=== PATIENT | male | born 1980 | race Caucasian/White ===

== ENCOUNTER 2016-04-21 08:43 | Day surgery (SDC) | payer OTHER ==
[~2016-04-21] VITALS: Ht 182.9 cm; Wt 86.9 kg
[2016-04-21] VITALS (8 sets, daily range): BP systolic 122–136; BP diastolic 64–81; PULSE 64–74; RESP 11–18; O2SAT 94–99
--- NOTE | 2016-04-21 06:43 | PCM.HPANE ---
Patient Data Surgeon Admitting Provider: Attending Provider:Audie Person DPM Primary Care Physician:Matthew Kay MD Other Provider:Heather Garridoingham Anesthesia Reason for Visit Right Peroneal Tendon Tear, Right Ankle Instabilit Ht/WT & BMI Height (Feet): 6 Height (Inches): 0 Weight (Kilograms): 88.08 Body Mass Index 26.00 Allergies Coded Allergies: No Known Allergies (Verified Allergy, Unknown, 04/19/16) Past Anesthesia History Anesthesia History: Denies:: Anesthesia Reactions Diabetes History Hx Diabetes?: No MRSA MRSA: No Medications Reported Medications Amphet Asp/Amphet/D-Amphet (Adderall)30 Mg Ndxpri03 Mg PO DAILY Ref 0 04/19/16 History History of ENT Problems?: No Hx of Heart Problems?: No Hx of Respiratory Problem?: No Hx Neurologic Problems?: Yes Other Neurological Pertinent: ADD/ADHD, ON MEDICATION Hx of GI Problems?: No Hx of Problems?: No Male Hx: Denies:: Prostate Problems Scrotal Mass Testicular Surgery Skin History: Denies:: History Skin Disorders? Pressure Ulcers Hx Musculoskeletal Problems?: Yes Musculoskeletal History: Positive for:: Musculoskeletal Trauma (R ANKLE) Hx of Psycho/Social Problems?: Yes (ADHD) Hx Surgeries?: Yes (HAND) Hx Any Other Health Problems?: No Other History: Denies:: Cancer Hx Diabetes: No Hx Alcohol Use: Yes (SOCIALLY) Stop/Bang S-Snoring: Do You Snore Loudly: No T-Tired: feel tired, fatigued: No O-Obsered: Observed not breath: No P-Blood Pressure: treated: No B- Body Mass Index > 35 kg/m2: No A- Age over 50: No N- Neck Large Circumference: No G- Gender Male: Yes DAVID Total Score: 1 Risk Assessment Category Category 1A: Patient has history of documented sleep apnea, and HAS NOT received any narcotic, sedative or anesthesia administration during this stay. Category 1B: Patient has history of documented sleep apnea, and HAS received any narcotic , sedative or anesthesia administration during this stay Category 2: Patient has SUSPECTED Obstructive Sleep Apnea, and HAS received any narcotic , sedative or anesthesia administration during this stay. Category 3: Patient has SUSPECTED Obstructive Sleep Apnea and HAS NOT received narcotic, sedative or anesthesia administration during this stay. Category 4: Outpatient in Procedural Areas with known sleep apnea or who screen positive for High Risk via the STOP/BANG questionnaire. Exam Exam General Appearance: Alert, Oriented X3, Cooperative HEENT/AIRWAY: MP 2, Neck Movement (from), Mouth Opening (wnl) Lungs: Clear to Auscultation Heart: Exam Unremarkable Plan Impression Patient chart reviewed, patient interviewed and anesthestic plan with risks, benefits, and alternatives discussed, and informed consent obtained. ASA Physical Status: ASA2 Mod Systemic Disease Anesthetic Plan: GA Bene/Risks/Altern/Consents: Yes HP Complete Prior to Induction: Yes Alvin Kohler MD Apr 21, 2016 06:43
[~2016-04-21 08:43] MED LIST: AMPH30TA3 PO; CeFAZolin Inj 2 GM in IV Premix 1 EACH IV ONE
[2016-04-21] MEDS ORDERED: Ondansetron 2 mg/mL 2 mL Inj ONE (08:44)
[2016-04-21] MEDS ORDERED: fentaNYL-PF 50 mCg/mL 2 mL Inj ONE (08:44)
[2016-04-21] MEDS ORDERED: Propofol 10,000 mCg/mL 20 mL Inj ONE (08:44)
[2016-04-21] MEDS: Lactated Ringer's 1,000 ML IV SCH ×2 (08:45→12:50)
[2016-04-21] MEDS ORDERED: CeFAZolin 2 Gm/50 mL D5W Duplex Bag IV ONE (08:55)
[2016-04-21] MEDS ORDERED: Lidocaine 2%-Epi 1:100,000 20 mL Inj INFILTRATE ONE (12:30)
[2016-04-21] MEDS ORDERED: Bupivacaine-MPF 0.5% 30 mL Inj INFILTRATE ONE (12:31)
[2016-04-21] MEDS ORDERED: Lactated Ringer's 500 ML IV PRN (13:37)
[2016-04-21] MEDS ORDERED: Lactated Ringer's 1,000 ML IV SCH (13:37)
[2016-04-21] MEDS ORDERED: HYDROmorphone 1 mg/mL Inj IVPUSH PRN (13:40)
[2016-04-21] MEDS ORDERED: hydrALAZINE 20 mg/mL Inj IVPUSH PRN (13:40)
[2016-04-21] MEDS ORDERED: Labetalol 5 mg/mL 4 mL Inj IV PRN (13:40)
[2016-04-21] MEDS ORDERED: Ondansetron 2 mg/mL 2 mL Inj IVPUSH PRN (13:40)
[2016-04-21] MEDS ORDERED: hydrOXYzine Inj 25 MG/1 mL SDV IM PRN (13:40)
[2016-04-21] MEDS ORDERED: fentaNYL-PF 50 mCg/mL 2 mL Inj IVPUSH PRN (13:40)
[2016-04-21] MEDS ORDERED: Dexamethasone 4 mg/mL Inj IVPUSH PRN (13:40)
[2016-04-21] MEDS ORDERED: Atropine 0.4 mg/mL Inj IVPUSH PRN (13:40)
[2016-04-21] MEDS ORDERED: Phenylephrine 10,000 mCg/mL Inj IVPUSH PRN (13:40)
[2016-04-21] MEDS ORDERED: EPHEDrine Sulfate 50 mg/mL Inj IM PRN (13:40)
[2016-04-21] MEDS ORDERED: EPHEDrine Sulfate 50 mg/mL Inj IVPUSH PRN (13:40)
[2016-04-21] MEDS ORDERED: oxyCODONE-Acetamin 5-325 mg Tablet PO PRN (15:25)
--- NOTE | 2016-04-21 16:15 | PCM.ANEP1 ---
Post Anesthesia Phase 1 PACU Phase 1 Assessment Vital Signs Vital Signs Date Time Temp Pulse Resp B/P Pulse Ox O2 Delivery O2 Flow Rate FiO2 04/21/16 15:56 36.4 64 16 133/71 97 Room Air 04/21/16 15:50 70 14 122/64 95 Room Air 04/21/16 15:45 36.5 73 15 136/81 94 Room Air 04/21/16 15:40 69 14 134/66 95 Room Air 04/21/16 15:35 66 12 136/68 97 Room Air 04/21/16 15:30 70 14 131/74 97 Room Air 04/21/16 15:25 36.7 74 11 134/70 98 Room Air 04/21/16 09:03 36.6 64 18 130/67 99 Room Air Anesthetic Administered: GA Level of Alertness: Awake, talking JOSEPH's with Equal Strength: Yes Pain: No Nausea or Vomiting: No Oxygen Delivery: Room Air Lungs: Normal Air Movement Alvin Kohler MD Apr 21, 2016 16:15
--- NOTE | 2016-04-22 08:48 | PCM.ANEP2 ---
Post Anesthesia Evaluation ASA/CMS Post Anesthesia VS in Patient's Normal Range?: Yes Resp Stable; Airway Patent?: Yes CV Function & Hydration Stable: Yes Mental Status Recovered?: Yes Pain control Satisfactory?: Yes N/V Control Satisfactory?: Yes Alvin Kohler MD Apr 22, 2016 08:48
--- NOTE | 2016-04-25 12:55 | PCM.PODPO ---
Podiatry Operative Report Date of Service: Apr 21, 2016 Date of Service Apr 21, 2016 Pre Operative Diagnosis Peroneal tendon tear right lower extremity, lateral ankle instability right lower extremity Post Operative Diagnosis Same as preoperative diagnoses Procedure Open repair of the right Proteus brevis tendon with use of onlay graft, lateral ankle stabilization with modified Brostrm Surgeon Surgeon: Audie Person DPM Assistants: None Indication for Procedure Painful right lateral ankle instability and tendon tear Findings Severe tearing of the peroneus brevis tendon at the level of the fibular malleolus. Moderate lateral ankle instability with attenuation of the anterior talofibular ligament Details of Procedure Patient was identified in the preoperative holding area preoperative comorbidities and allergies were identified and thoroughly discussed. The patient was transported into the operating room and placed on the operating room table in the normal supine position. The patient was then prepped and draped in the normal aseptic technique. Attention was first paid to the lateral aspect of the right lower extremity. A curvilinear incision was made overlying the peroneal brevis tendon near the musculotendinous junction to an area just distal to the calcaneocuboid joint approximately 10 cm in length. Once that initially her skin or subcutaneous neurovascular structures were identified and retracted out of the surgical field. Careful dissection was performed utilizing a Metzenbaum scissor through subcutaneous tissue to identify the peroneal tendon sheath. Care was taken to identify the sural nerve which was retracted plantarly. Inspection of the peroneal tendon sheath revealed severe hypertrophy of the sheath posterior to the fibular malleolus. A fresh #15 blade was then utilized to incise through the peroneal tendon sheath exposing both the Proteus brevis and peroneal longus tendons. A significant amount of synovitis and thickening of the tendon sheath was then debrided and removed from the foot. Inspection of the peroneus longus tendon revealed a healthy-appearing intact tendon without any notable tear. Inspection of the peroneal brevis tendon revealed severe tendon tearing with multiple longitudinal tears located at the level of the fibular malleolus extending approximately 4 cm in total length. Hypertrophy of the tendon mid substance was noted with some fatty scar tissue. Debridement of nonviable tendinous tissue was then performed. 4. 0 Vicryl suture was utilized to perform intratendinous closure and repair as well as to reapproximate the edges of the tendon tear causing the tendon to tubularize. The tendon was placed through range of motion following repair with multiple simple style sutures and the repair was found to be stable. A number 2. 0 FiberWire running suture was then utilized to augment the repair providing further stability extending the suture from an area approximately 1-1/2 cm proximal to the tear to one and a half centimeters distal to the tear repair site. Again the tendon was stressed with normal range of motion of the ankle and no gapping of the repair site was noted. Prakash flex graft material was then laid directly over the repair site and sutured into place utilizing Vicryl suture at the level of the fibular malleolus. The peroneus brevis tendon was placed back into anatomic position posterior to the fibular malleolus and again the ankle was placed through range of motion ensuring that the repair site with glide smoothly around the fibular malleolus. The tendon sheath was carefully repaired utilizing number 4. 0 Vicryl suture. Following repair of the tendon sheath the ankle was again placed through range of motion and no subluxation of the peroneal tendons posterior to the fibula was noted. Attention was then paid to the anterior lateral aspect of the right ankle joint. A semilunar incision was made through capsular tissue slightly anterior and distal to the attachment of the anterior talofibular ligament onto the fibula. Careful dissection was performed and the anterior talofibular ligament was identified and found to be very thin and lengthened causing laxity with a mild anterior drawer. The anterior talofibular ligament was then sectioned in its mid substance. 2 #2.4 mm suture tacks were then inserted into the fibula approximately 1/2 cm proximal and 1/2 cm distal to the insertion of the anterior talofibular ligament and the attached suture material was used to repair the anterior talofibular ligament as well as incorporate the lateral extensor retinaculum into the repair site. Following direct repair of this area the ankle was stressed anteriorly and no displacement was noted with a negative anterior drawer. This wound was ankle disease plus with large amounts of normal saline and deep closure was performed utilizing number 3. 0 Vicryl and skin closure was performed utilizing number 3. 0 Prolene. The patient was then dressed utilizing Adaptic sterile 4 x 4 gauze Kerlix and the patient was placed into a mildly compressive Merrill compression dressing with a posterior splint. No complications occurred during this procedure. The patient was awoken by anesthesia and transported to the operating room area Grafts, Implants: Grafts-See Implant Record, Implants-See Implant Record Complications There were no periprocedural complications identified. Condition Stable Anesthetic Administered: GA Catheters: None Output, Estimated Blood Loss: 30 Blood Admin during surgery: No Surgical Cast or Splint: Well-padded Short Leg Splint Surgical Specimen Removed: No Specimen sent to Pathology: No Post Operative Plan Ice and elevate right lower extremity. Nonweightbearing right lower extremity He dressing clean dry and intact Follow-up in 5 days Discharge to home when stable Contact our office with any questions or concerns regarding care. Audie Person DPM Apr 25, 2016 12:55
== END 2016-04-21 23:59 | disposition home or self-care (01) ==
LOC: SAS 08:43
PROVIDERS: ATTEND Podiatrist Foot & Ankle Surgery
DX: S86.311A Strain of muscle(s) and tendon(s) of peroneal muscle group at lower leg level, right leg, initial encounter (principal); M25.371 Other instability, right ankle; Y93.9 Activity, unspecified; Y92.9 Unspecified place or not applicable
CPT/HCPCS: 27659; 27698; 76000; C1713; J0690; J2250; J2405; J7120